=== PATIENT | female | born 1970 | race Two or more races ===

== ENCOUNTER 2017-04-04 17:27 | Emergency (ER) | payer BC ==
[~2017-04-04] VITALS: Ht 172.7 cm; Wt 55.3 kg
[2017-04-04] MEDS ORDERED: ONDANSETRON HCL/PF 4 MG/2 ML VIAL ONE (17:46)
[2017-04-04] MEDS ORDERED: IV SET PRIMARY 1 EA INFUS.SET MC ONE (17:47)
[2017-04-04] MEDS ORDERED: IV NS 0.9% 2,000 ML ONE (17:47)
--- NOTE | 2017-04-04 17:50 | NUR ---
PT BIB [facility] S/P NEAR SYNCOPE AND N/V WHILE OUTSIDE WORKING IN 100+ DEGREE HEAT. DENIES PAIN. PT FEELS WEAK AND UNABLE TO STAND. NO NEURO DEFICITS. NO VISUAL CHANGES. RESP EVEN UNLABORED. NONDIAPHORETIC. IN ER BED 09.
[2017-04-04] MEDS ORDERED: ONDANSETRON HCL/PF 4 MG/2 ML VIAL IVP ONE (18:00)
[2017-04-04] MEDS ORDERED: IV NS 0.9% 1,000 ML BAG IV ONE (18:00)
[2017-04-04 18:12] LABS: BASOPHILS # (AUTO) 0.1 /CMM (0.0-0.2); BASOPHILS % (AUTO) 0.8 % (0.0-2.0); EOSINOPHILS # (AUTO) 0.1 /CMM (0.0-0.7); HEMATOCRIT 35 % (33-45); HEMOGLOBIN 11.7 g/dL (11.5-14.8); LYMPHOCYTES # (AUTO) 1.9 /CMM (0.8-4.8); LYMPHOCYTES % (AUTO) 21.9 % (20.0-44.0); MEAN CORPUSCULAR HEMOGLOBIN 32 PG (26.0-33.0); MEAN CORPUSCULAR HGB CONC 34 g/dl (31.0-36.0); MEAN CORPUSCULAR VOLUME 93 fL (82-100); MONOCYTES # (AUTO) 0.6 /CMM (0.1-1.30); MONOCYTES % (AUTO) 6.9 % (2.0-12.0); NEUTROPHILS # (AUTO) 6.2 /CMM (1.8-8.9); NEUTROPHILS % (AUTO) 69.4 % (43.0-81.0); PLATELET COUNT (AUTO) 236 /CMM (150-450); RED BLOOD CELL COUNT(AUTO) 3.71 MIL/uL (4.0-5.2); WHITE BLOOD COUNT (AUTO) 8.9 K/uL (4.3-11.0)
[2017-04-04 18:20] LABS: CALCIUM, SERUM 8.3 mg/dL (8.5-10.1); POTASSIUM 3.7 mmol/L (3.5-5.1)
--- NOTE | 2017-04-04 18:40 | NUR ---
RESTING QUIETLY, NAD NOTED. ALL NEEDS ATTENDED TO. PT C/O FEELING COLD; PROVIDED WITH WARM BLANKETS. AT BEDSIDE.
[2017-04-04 19:46] VITALS: BP 103/72
--- NOTE | 2017-04-04 19:47 | NUR ---
Patient discharged to home in stable condition. Written and verbal after care instructions given. Patient verbalizes understanding of instruction. IV removed. Catheter intact and site benign. Pressure and 4x4 applied to site. No bleeding noted.
== END 2017-04-04 19:47 | disposition home or self-care (01) ==
LOC: ER 17:28
DX: R11.2 Nausea with vomiting, unspecified (principal); T67.5XXA Heat exhaustion, unspecified, initial encounter; Z88.1 Allergy status to other antibiotic agents; X32.XXXA Exposure to sunlight, initial encounter; Y93.H2 Activity, gardening and landscaping; Y92.89 Other specified places as the place of occurrence of the external cause; Y99.8 Other external cause status
CPT/HCPCS: 36415; 80048-TC; 85025-TC; A4606; J2405; J7030; Z7610